=== PATIENT | male | born 1970 | race Caucasian/White ===

== ENCOUNTER 2020-08-15 19:58 | Emergency (ER) | payer OTHER ==
[~2020-08-15] VITALS: Ht 188 cm; Wt 102.6 kg
[2020-08-15] MEDS ORDERED: cefTRIAXone SOD 2 GM in D5W MINI-BAG PLUS 50 ML IV ONE (22:05)
[2020-08-15] MEDS ORDERED: ACETAMINOPHEN TAB 650MG DOSE (2X325MG) PO ONE (22:30)
--- NOTE | 2020-08-15 22:35 | REPVR ---
PROCEDURE INFORMATION: Exam: XR Right Finger(s) Exam date and time: 08/15/2020 9:21 PM Age: 49 years old Clinical indication: Other: Trauma from saw TECHNIQUE: Imaging protocol: XR Right fingers. Views: Minimum 2 views. COMPARISON: No relevant prior studies available. FINDINGS: Bones/joints: First digit soft tissue injury. Distracted fracture involving the distal aspect of the 1st digit distal phalanx. Fracture distraction measures 5 mm. Soft tissues: No radiodense foreign body. IMPRESSION: Distracted fracture involving the distal aspect of the 1st digit distal phalanx. Electronically signed by: Surjit Seymour On 08/15/2020 22:34:55 PM
[2020-08-16 01:37] VITALS: BP 141/80
== END 2020-08-16 01:39 | disposition short-term general hospital (02) ==
LOC: M ED 19:58
DX: S62.524B Nondisplaced fracture of distal phalanx of right thumb, initial encounter for open fracture (principal); W23.1XXA Caught, crushed, jammed, or pinched between stationary objects, initial encounter; Y92.9 Unspecified place or not applicable; Y93.9 Activity, unspecified; Y99.9 Unspecified external cause status
CPT/HCPCS: 73140; 96365; 99284; J0696

== ENCOUNTER 2025-01-08 11:19 | Day surgery (SDC) | payer OTHER ==
[~2025-01-08] VITALS: Ht 190.5 cm; Wt 99.2 kg
[~2025-01-08 11:19] MED LIST: ALEV220T22 PO
[2025-01-08] MEDS ORDERED: LIDOCAINE 2% 100 MG/5 ML SDV (FOR ANES.) As Ordered ONE (11:43)
[2025-01-08 12:38] VITALS: BP 116/67; O2SAT 97
== END 2025-01-08 12:54 | disposition home or self-care (01) ==
LOC: M OPP 11:19
PROVIDERS: ATTEND Surgery
DX: Z12.11 Encounter for screening for malignant neoplasm of colon (principal); K57.30 Diverticulosis of large intestine without perforation or abscess without bleeding; K63.5 Polyp of colon